=== PATIENT | female | born 1970 | race Two or more races ===

== ENCOUNTER 2019-03-07 09:43 | Emergency (ER) | payer MEDICAID, OTHER ==
[~2019-03-07] VITALS: Ht 154.9 cm; Wt 74.4 kg
[2019-03-07 09:55] VITALS: BP 133/89
== END 2019-03-07 11:12 | disposition home or self-care (01) ==
LOC: ER 09:43
DX: J20.9 Acute bronchitis, unspecified (principal); F17.210 Nicotine dependence, cigarettes, uncomplicated
CPT/HCPCS: 71046

== ENCOUNTER 2020-07-17 02:07 | Emergency (ER) | payer MEDICAID ==
[~2020-07-17] VITALS: Ht 154.9 cm; Wt 81.2 kg
[2020-07-17] MEDS ORDERED: ACETAMINOPHEN 325 MG TAB PO ONE (03:00)
[2020-07-17] MEDS ORDERED: cefTRIAXone SOD 1,000 MG VL IM ONE (03:00)
[2020-07-17] MEDS ORDERED: CLINDAMYCIN HCL 150 MG CAP PO ONE (03:00)
[2020-07-17 05:30] VITALS: BP 124/73
[2020-07-17] MEDS ORDERED: KETOROLAC TROMETH 60MG/2ML VIAL IM ONE (05:30)
== END 2020-07-17 05:32 | disposition home or self-care (01) ==
LOC: ER 02:09
DX: L03.317 Cellulitis of buttock (principal)
CPT/HCPCS: 96372; 99284; J0696; J1885

== ENCOUNTER 2020-07-21 04:33 | Emergency (ER) | payer SELFPAY ==
[~2020-07-21] VITALS: Ht 154.9 cm; Wt 81.2 kg
[2020-07-21 05:01] VITALS: BP 124/74
== END 2020-07-21 05:35 | disposition home or self-care (01) ==
LOC: ER 04:33
DX: L02.31 Cutaneous abscess of buttock (principal)
CPT/HCPCS: 10060; 10061

== ENCOUNTER 2020-07-23 05:28 | Emergency (ER) | payer MEDICAID ==
[~2020-07-23] VITALS: Ht 154.9 cm; Wt 81.2 kg
[2020-07-23 05:33] VITALS: BP 129/91
== END 2020-07-23 07:55 | disposition home or self-care (01) ==
LOC: ER 05:28
DX: L03.317 Cellulitis of buttock (principal); L02.31 Cutaneous abscess of buttock

== ENCOUNTER 2020-07-25 05:50 | Emergency (ER) | payer MEDICAID ==
[~2020-07-25] VITALS: Ht 154.9 cm; Wt 81.2 kg
[2020-07-25 05:50] VITALS: BP 159/87
== END 2020-07-25 06:58 | disposition home or self-care (01) ==
LOC: ER 05:52
DX: L02.31 Cutaneous abscess of buttock (principal); Z48.01 Encounter for change or removal of surgical wound dressing

== ENCOUNTER 2020-08-30 01:44 | Emergency (ER) | payer MEDICAID ==
[~2020-08-30] VITALS: Ht 154.9 cm; Wt 81.2 kg
[2020-08-30 02:26] VITALS: BP 124/81
[2020-08-30 02:33] LABS: Basophils # (auto) 0 10 ^3/uL (0-0.2); Basophils % (auto) 0.7 % (0.0-2.0); Eosinophils # (auto) 0.5 10 ^3/uL (0-0.8); Eosinophils % (auto) 6.8 % (0.0-7.0); Hematocrit 37.3 % (36.0-46.0); Hemoglobin 12.6 g/dL (12.2-16.2); Lymphocytes # (auto) 2.3 10 ^3/uL (0.4-5.4); Lymphocytes % (auto) 35.1 % (10.0-50.0); Mean Corpuscular Hemoglobin 27.8 pg (28.0-32.0); Mean Corpuscular Hgb Conc. 33.9 g/dL (32.0-36.0); Monocytes # (auto) 0.4 10 ^3/uL (0-1.3); Monocytes % (auto) 6.2 % (0.0-12.0); Neutrophils # (auto) 3.4 10 ^3/uL (1.6-8.6); Neutrophils % (auto) 51.2 % (37.0-80.0); Nucleated Red Blood Cells % 0.1 %; Red Blood Cells 4.55 10^6/uL (4.0-5.20); Red Cell Distribution Width 16.5 % (11.8-14.3); White Blood Cell 6.7 10^3/uL (4.4-10.8)
[2020-08-30 02:46] LABS: Albumin 3.5 g/dL (3.4-5.0); Anion Gap 6 (5-15); Blood Urea Nitrogen 16 mg/dL (7-18); Calcium 8.6 mg/dL (8.5-10.1); Carbon Dioxide 26 mmol/L (21-32); Chloride 108 mmol/L (98-107); Glucose 99 mg/dL (74-106); Potassium 3.8 mmol/L (3.5-5.1); Sodium 140 mmol/L (136-145)
[2020-08-30 02:48] LABS: Alanine Aminotransferase 54 U/L (13-56); Aspartate Aminotransferase 19 U/L (15-37); BUN/Creatinine Ratio 23.5; GFR African American 118 mL/min; GFR Non-African American 98 mL/min
[2020-08-30 02:52] LABS: Alkaline Phosphatase 100 U/L (45-117); Bilirubin, Total 0.3 mg/dL (0.2-1.0)
== END 2020-08-30 04:30 | disposition home or self-care (01) ==
LOC: ER 01:44
DX: R07.89 Other chest pain (principal); R00.2 Palpitations; I10 Essential (primary) hypertension; E78.00 Pure hypercholesterolemia, unspecified
CPT/HCPCS: 36415; 80053; 83880; 84484; 85025; 93005

== ENCOUNTER 2020-10-10 06:55 | Emergency (ER) | payer SELFPAY ==
[~2020-10-10] VITALS: Ht 180.3 cm; Wt 77.1 kg
[2020-10-10] MEDS ORDERED: methylPREDNISolone SOD SUCC 125 MG/2 ML VL IM ONE (10:30)
[2020-10-10] MEDS ORDERED: IPRATROPIUM BROM 0.5 MG/2.5ML INH SOL NEB ONE (10:30)
[2020-10-10] MEDS ORDERED: ALBUTEROL SULF 2.5 MG/0.5ML(0.5%) NEB SOLN NEB ONE (10:30)
[2020-10-10 10:43] VITALS: BP 142/98
== END 2020-10-10 11:09 | disposition home or self-care (01) ==
LOC: ER 06:55
DX: J20.9 Acute bronchitis, unspecified (principal); I10 Essential (primary) hypertension; E78.5 Hyperlipidemia, unspecified
CPT/HCPCS: 36415; 71045; 94640; 96372; 99283; J2930; J7644